=== PATIENT | female | born 1980 | race Caucasian/White ===

== ENCOUNTER 2016-11-09 09:14 | Inpatient (IN) | payer MEDICARE ==
[~2016-11-09] VITALS: Ht 170.2 cm; Wt 74.1 kg
[2016-11-09 09:27] VITALS: BP 130/83; PULSE 87; RESP 20; O2SAT 96
[2016-11-09] MEDS ORDERED: LORazepam 2 MG/ML VIAL IM ONE (10:00)
--- NOTE | 2016-11-09 10:04 | PD ---
HPI Chief Complaint: Psychiatric Symptoms Time Seen by Provider: 09:45 Travel History International Travel<30 days: No Contact w/Intl Traveler<30days: No Traveled to known affect area: No History of Present Illness HPI Patient is a 36-year-old female who presents to ER with police officers under rice act as she made suicidal statements today. Reports that she wants to because she has no life and is not afraid to if she was run over by a vehicle. FOR[facility]LY [facility] Past Medical History Diminished Hearing: No Kidney Stones: Yes ?: Unknown LMP: 10/12/16 Past Surgical History Other Surgery: Yes (right hand surgery, right knee surgery ) Social History Alcohol Use: No Tobacco Use: No Substance Use: No Allergies-Medications (Allergen,Severity, Reaction): Coded Allergies: Percocet (Verified Allergy, Mild, itching , 11/09/16) Review of Systems General / Constitutional: No: Fever Eyes: No: Visual changes HENT: No: Headaches Cardiovascular: No: Chest Pain or Discomfort Respiratory: No: Shortness of Breath Gastrointestinal: No: Abdominal Pain Genitourinary: No: Dysuria Musculoskeletal: No: Pain Skin: No Rash Neurologic: No: Weakness Psychiatric: Positive: Depression, Suicidal Ideations Endocrine: No: Polydipsia Hematologic/Lymphatic: No: Easy Bruising Physical Exam Narrative GENERAL: Mild distress SKIN: Focused skin assessment warm/dry. HEAD: Atraumatic. Normocephalic. EYES: Pupils equal and round. No scleral icterus. No injection or drainage. ENT: No nasal bleeding or discharge. Mucous membranes pink and moist. NECK: Trachea midline. No JVD. CARDIOVASCULAR: Regular rate and rhythm. No murmur appreciated. RESPIRATORY: No accessory muscle use. Clear to auscultation. Breath sounds equal bilaterally. GASTROINTESTINAL: Abdomen soft, non-tender, nondistended. Hepatic and splenic margins not palpable. MUSCULOSKELETAL: No obvious deformities. No clubbing. No cyanosis. No edema. NEUROLOGICAL: Awake and alert. No obvious cranial nerve deficits. Motor grossly within normal limits. Normal speech. PSYCHIATRIC: Patient with suicidal ideation, patient aggressive and combative Data Data Last Documented VS Vital Signs Date Time Temp Pulse Resp B/P Pulse Ox O2 Delivery O2 Flow Rate FiO2 11/09/16 09:27 87 20 130/83 96 Orders Complete Blood Count With Diff (11/09/16 09:51) Comprehensive Metabolic Panel (11/09/16 09:51) Psych Screen (11/09/16 09:51) Drug Screen, Random Urine (11/09/16 09:51) Alcohol (Ethanol) (11/09/16 09:51) Salicylates (Aspirin) (11/09/16 09:51) Tylenol (Acetaminophen) (11/09/16 09:51) Ed Urine Pregnancytest Poc (11/09/16 09:51) Lorazepam Inj (Ativan Inj) (11/09/16 10:00) Haloperidol Inj (Haldol Inj) (11/09/16 10:15) Restraints Violent (11/09/16 10:02) Labs Laboratory Tests Test 11/09/16 10:00 White Blood Count 6.5 TH/MM3 Red Blood Count 4.27 MIL/MM3 Hemoglobin 12.6 GM/DL Hematocrit 37.4 % Mean Corpuscular Volume 87.5 FL Mean Corpuscular Hemoglobin 29.6 PG Mean Corpuscular Hemoglobin 33.8 % Concent Red Cell Distribution Width 13.8 % Platelet Count 302 TH/MM3 Mean Platelet Volume 7.5 FL Neutrophils (%) (Auto) 64.0 % Lymphocytes (%) (Auto) 27.2 % Monocytes (%) (Auto) 6.7 % Eosinophils (%) (Auto) 1.3 % Basophils (%) (Auto) 0.8 % Neutrophils # (Auto) 4.2 TH/MM3 Lymphocytes # (Auto) 1.8 TH/MM3 Monocytes # (Auto) 0.4 TH/MM3 Eosinophils # (Auto) 0.1 TH/MM3 Basophils # (Auto) 0.1 TH/MM3 CBC Comment DIFF FINAL Differential Comment Sodium Level 139 MEQ/L Potassium Level 3.7 MEQ/L Chloride Level 107 MEQ/L Carbon Dioxide Level 27.4 MEQ/L Anion Gap 5 MEQ/L Blood Urea Nitrogen 14 MG/DL Creatinine 0.68 MG/DL Estimat Glomerular Filtration 97 ML/MIN Rate Random Glucose 90 MG/DL Calcium Level 8.7 MG/DL Total Bilirubin 0.4 MG/DL Aspartate Amino Transf 18 U/L (AST/SGOT) Alanine Aminotransferase 21 U/L (ALT/SGPT) Alkaline Phosphatase 97 U/L Total Protein 8.1 GM/DL Albumin 4.2 GM/DL Salicylates Level 2.9 MG/DL Acetaminophen Level LESS THAN 2.0 MCG/ML Ethyl Alcohol Level LESS THAN 3 MG/DL MDM Medical Decision Making Medical Screen Exam Complete: Yes Emergency Medical Condition: Yes Interpretation(s) Vital Signs Date Time Temp Pulse Resp B/P Pulse Ox O2 Delivery O2 Flow Rate FiO2 11/09/16 09:27 87 20 130/83 96 Differential Diagnosis Suicidal ideations, depression, bipolar disorder, chiquita Narrative Course Patient is a 36-year-old female who presents to ER with police officers under rice act as she made suicidal statements today. Reports that she wants to because she has no life and is not afraid to if she was run over by a vehicle. Patient currently belligerent, combative, aggressive to staff at this time, patient requires chemical as well as restraints for her safety as well as for safety of staff. Laboratory Tests Test 11/09/16 10:00 White Blood Count 6.5 TH/MM3 (4.0-11.0) Red Blood Count 4.27 MIL/MM3 (4.00-5.30) Hemoglobin 12.6 GM/DL (11.6-15.3) Hematocrit 37.4 % (35.0-46.0) Mean Corpuscular Volume 87.5 FL (80.0-100.0) Mean Corpuscular Hemoglobin 29.6 PG (27.0-34.0) Mean Corpuscular Hemoglobin 33.8 % Concent (32.0-36.0) Red Cell Distribution Width 13.8 % (11.6-17.2) Platelet Count 302 TH/MM3 (150-450) Mean Platelet Volume 7.5 FL (7.0-11.0) Neutrophils (%) (Auto) 64.0 % (16.0-70.0) Lymphocytes (%) (Auto) 27.2 % (9.0-44.0) Monocytes (%) (Auto) 6.7 % (0.0-8.0) Eosinophils (%) (Auto) 1.3 % (0.0-4.0) Basophils (%) (Auto) 0.8 % (0.0-2.0) Neutrophils # (Auto) 4.2 TH/MM3 (1.8-7.7) Lymphocytes # (Auto) 1.8 TH/MM3 (1.0-4.8) Monocytes # (Auto) 0.4 TH/MM3 (0-0.9) Eosinophils # (Auto) 0.1 TH/MM3 (0-0.4) Basophils # (Auto) 0.1 TH/MM3 (0-0.2) CBC Comment DIFF FINAL Differential Comment Sodium Level 139 MEQ/L (136-145) Potassium Level 3.7 MEQ/L (3.5-5.1) Chloride Level 107 MEQ/L (98-107) Carbon Dioxide Level 27.4 MEQ/L (21.0-32.0) Anion Gap 5 MEQ/L (5-15) Blood Urea Nitrogen 14 MG/DL (7-18) Creatinine 0.68 MG/DL (0.50-1.00) Estimat Glomerular Filtration 97 ML/MIN (>89) Rate Random Glucose 90 MG/DL (74-106) Calcium Level 8.7 MG/DL (8.5-10.1) Total Bilirubin 0.4 MG/DL (0.2-1.0) Aspartate Amino Transf 18 U/L (15-37) (AST/SGOT) Alanine Aminotransferase 21 U/L (10-53) (ALT/SGPT) Alkaline Phosphatase 97 U/L (45-117) Total Protein 8.1 GM/DL (6.4-8.2) Albumin 4.2 GM/DL (3.4-5.0) Salicylates Level 2.9 MG/DL (2.8-20.0) Acetaminophen Level LESS THAN 2.0 MCG/ML (10.0-30.0) Ethyl Alcohol Level LESS THAN 3 MG/DL (0-5) Patient was able to be consoled without chemical and mechanical restraints - will transfer patient to [facility] for psychiatric evaluation. Patient with 1:1 at bedside, restraints as well as chemical restraints were not administered Critical Care Narrative Aggregate critical care time was 30 minutes. Time to perform other separately billable procedures was not included in the critical care time. My time did not include minutes spent treating any other patients simultaneously or on activities that did not directly contribute to the patient's treatment. The services I provided to this patient were to treat and/or prevent clinically significant deterioration that could result in: , decompensation, deterioration I provided critical care services requiring my management, as noted below: Chart data review, documentation time, medication orders and management, vital sign assessments/reviewing monitor data, ordering and reviewing lab tests, ordering and interpreting/reviewing x-rays and diagnostic studies, care of the patient and discussion of the patient with the admitting physicians. Renata Anderson DO Nov 09, 2016 10:04
[2016-11-09 10:11] LABS: AUTOMATED NEUTROPHIL # 4.2 TH/MM3 (1.8-7.7); BASOPHIL # 0.1 TH/MM3 (0-0.2); BASOPHIL % 0.8 % (0.0-2.0); EOSINOPHIL # 0.1 TH/MM3 (0-0.4); EOSINOPHIL % 1.3 % (0.0-4.0); HEMATOCRIT 37.4 % (35.0-46.0); HEMO FLAGS DIFF FINAL; LYMPH % 27.2 % (9.0-44.0); LYMPHOCYTE # 1.8 TH/MM3 (1.0-4.8); MEAN CELL VOLUME 87.5 FL (80.0-100.0); MEAN CORPUSCULAR HEMOGLOBIN 29.6 PG (27.0-34.0); MEAN CORPUSCULAR HGB CONC 33.8 % (32.0-36.0); MONO % 6.7 % (0.0-8.0); PLATELET COUNT 302 TH/MM3 (150-450); RED BLOOD COUNT 4.27 MIL/MM3 (4.00-5.30); RED CELL DISTRIBUTION WIDTH 13.8 % (11.6-17.2); WHITE BLOOD COUNT 6.5 TH/MM3 (4.0-11.0)
[2016-11-09] MEDS ORDERED: HALOPERIDOL LACTATE 5 MG/ML AMP IM ONE (10:15)
[2016-11-09 10:48] LABS: ANION GAP 5 MEQ/L (5-15)
[2016-11-09 10:59] LABS: ALKALINE PHOSPHATASE 97 U/L (45-117); ALT (GPT) 21 U/L (10-53); AST (GOT) 18 U/L (15-37); BICARBONATE 27.4 MEQ/L (21.0-32.0); BLOOD UREA NITROGEN 14 MG/DL (7-18); CHLORIDE 107 MEQ/L (98-107); GLOMERULAR FILTRATION RATE 97 ML/MIN (>89); POTASSIUM 3.7 MEQ/L (3.5-5.1); SODIUM (NA) 139 MEQ/L (136-145); TOTAL BILIRUBIN ADULT 0.4 MG/DL (0.2-1.0)
[2016-11-09 11:00] LABS: ACETAMINOPHEN LESS THAN 2.0 MCG/ML (10.0-30.0)
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
[2016-11-09] MEDS ORDERED: ALUMINUM/MAGNESIUM/SIMETH 30 ML CUP PO PRN (13:15)
[2016-11-09] MEDS ORDERED: traZODone HCL 50 MG TAB PO PRN (13:15)
[2016-11-09] MEDS ORDERED: LORazepam 2 MG/ML VIAL IM PRN ×2 (13:15)
[2016-11-09] MEDS ORDERED: LORazepam 0.5 MG TAB PO PRN (13:15)
[2016-11-09] MEDS ORDERED: diphenhydrAMINE HCL 50 MG/ML VIAL IM PRN (13:15)
[2016-11-09] MEDS ORDERED: diphenhydrAMINE HCL 50 MG CAP PO PRN (13:15)
[2016-11-09] MEDS ORDERED: LORazepam 1 MG TAB PO PRN (13:15)
[2016-11-09] MEDS ORDERED: MAGNESIUM HYDROXIDE SUSP 30 ML CUP PO PRN (13:15)
[2016-11-09 15:01] VITALS: BP 116/81; PULSE 87; RESP 18; O2SAT 98
[2016-11-09 18:21] VITALS: BP 126/72; PULSE 72; RESP 22; TEMP 97.9; O2SAT 99
[2016-11-10 06:00] VITALS: BP 114/73; PULSE 70; RESP 18; TEMP 97.7; O2SAT 99
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
[2016-11-10] MEDS ORDERED: OLANZapine IM 10 MG VIAL IM PRN (14:15)
[2016-11-10 18:06] VITALS: BP 115/58; PULSE 82; RESP 16; TEMP 98.3; O2SAT 98
[2016-11-11] MEDS: ACETAMINOPHEN 325 MG TAB PO PRN ×2 (02:16→09:23)
[2016-11-11 06:00] VITALS: BP 121/78; PULSE 64; RESP 18; TEMP 97.7; O2SAT 98
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
[2016-11-11 18:06] VITALS: BP 114/63; PULSE 88; RESP 18; TEMP 98; O2SAT 98
[2016-11-11] MEDS: OLANZapine ODT 10 MG TAB PO SCH (21:20)
[2016-11-12 05:45] VITALS: BP 131/61; PULSE 81; RESP 17; TEMP 98.7; O2SAT 98
--- NOTE | 2016-11-12 11:58 | HHI.PYPN ---
Subjective Remarks Patient seen and examined with nurse. Chart reviewed. Case discussed with nursing staff. On my examination this morning, following a scheduled dose of Zyprexa yesterday evening, the patient seems considerably more logical and linear in her thought process. Significantly less loosening of associations. Affect considerably less labile and mood generally more stable. Now says of her presenting episode "I probably could've dealt with the situation better." She does complain of some mild grogginess and dizziness related with the Zyprexa but otherwise denies side effects. Agreeable to having lab work done today. No SI or HI. No physical complaints otherwise. Review of Systems Except as stated in HPI: all other systems reviewed are Neg Objective Alert: Yes [place]: Person, Place, Date Mood: Calm Affect: Blunted Memory Intact: Comment (fair) Hallucinations: Other (No AVH) Delusions: No Delusion Type: Other (No delusions) Suicidal: Ideation (No SI) Homicidal: Ideation (No HI) Insight/Judgment Perhaps improving Remarks Thought process considerably more linear today. Grooming and hygiene fair. Speech within normal limits for rate, tone and volume. Labs Labs reviewed. A urine drug screen was obtained and this is positive for cannabinoids. Vitals/IOs Vital Signs Date Time Temp Pulse Resp B/P Pulse Ox O2 Delivery O2 Flow Rate FiO2 11/12/16 05:45 98.7 81 17 131/61 98 11/09/16 15:01 Room Air Assessment & Plan Problem List: (1) Corin Assessment & Plan: Improving. Rule out drug-induced mood disorder, rule out bipolar disorder. ICD Code: F30.9 (2) Use of cannabis ICD Code: F12.90 Assessment & Plan Patient seems much improved this morning. Continue Zyprexa as ordered. Check TSH, B12, vitamin D. Check orthostatics. Fall precautions. Transfer to lower acuity unit. Continue other medications and care as ordered. Justification for Cont. Inpt. Monitoring for impairments in safety. Discharge Planning Possible discharge tomorrow, Wednesday, if the patient continues to do well. Request HC Surrog/Guard Advoc?: Yes Edi Catnu MD Nov 12, 2016 11:58
[2016-11-12 13:40] LABS: AMPHETAMINE, URINE NEG (NEG); BARBITURATES, URINE NEG (NEG); COCAINE, URINE NEG (NEG)
[2016-11-12 16:00] VITALS: BP_SYST 106; BP_SYST 113; BP_DIAS 61; BP_DIAS 66; BP_DIAS 76; PULSE 66; PULSE 78; PULSE 80
[2016-11-12 18:00] VITALS: BP 106/61; PULSE 78; RESP 18; TEMP 98.9; O2SAT 96
[2016-11-12] MEDS: OLANZapine ODT 10 MG TAB PO SCH (21:50)
[2016-11-13] MEDS ORDERED: ZYPR10TA PO (11:09)
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
== END 2016-11-13 14:20 | disposition home or self-care (01) | DRG 885 ==
LOC: NEPE 09:14 → NEDA 13:04 → H270 18:00 → H260 11-12 12:15
PROVIDERS: ADMIT Psychiatry & Neurology Psychiatry; ATTEND Psychiatry & Neurology Psychiatry
DX: F31.2 Bipolar disorder, current episode manic severe with psychotic features (principal); R45.851 Suicidal ideations; Z78.1 Physical restraint status; F23 Brief psychotic disorder; F12.90 Cannabis use, unspecified, uncomplicated
CPT/HCPCS: 80053; 80307; 82306; 82607; 84443; 84703; 85025; Q0163

== ENCOUNTER 2016-11-20 19:22 | Emergency (ER) | payer MEDICARE, OTHER ==
[~2016-11-20] VITALS: Ht 165.1 cm; Wt 60.0 kg
[~2016-11-20 19:22] MED LIST: ZYPR10TA PO
[2016-11-20 20:30] VITALS: BP 121/66; PULSE 64; RESP 15; TEMP 98; O2SAT 98
--- NOTE | 2016-11-20 20:41 | PD ---
HPI Chief Complaint: psychiatric clearance Time Seen by Provider: 20:33 Travel History International Travel<30 days: No Contact w/Intl Traveler<30days: No Traveled to known affect area: No History of Present Illness HPI 36-year-old female was brought to the emergency room by the police as a court order for ex parte today. It is little unclear as to what exactly happened. Patient was arrested last night and was brought to the court this afternoon when she must have said something to somebody which made her get the ex parte. Patient does have psych history. [facility] Past Medical History Narrative Medical List of his past medical, surgical, social and family history is reviewed from the nursing note. Diminished Hearing: No Kidney Stones: Yes Past Surgical History Other Surgery: Yes (right hand surgery, right knee surgery ) Social History Alcohol Use: No Tobacco Use: No Substance Use: Yes (MARIJUANA DAILY) Allergies-Medications (Allergen,Severity, Reaction): Coded Allergies: Percocet (Verified Allergy, Mild, itching , 11/20/16) Comments List of his allergies reviewed from the nursing note. Reported Meds & Prescriptions Reported Meds & Active Scripts Active Zyprexa (Olanzapine) 10 Mg Tab 10 Mg PO HS Zyprexa (Olanzapine) 10 Mg Tab 10 Mg PO HS 15 Days Narrative Medication List of his home medications reviewed from the nursing note. Review of Systems Except as stated in HPI: all other systems reviewed are Neg Physical Exam Narrative GENERAL: Awake, alert, anxious SKIN: Focused skin assessment warm/dry. HEAD: Atraumatic. Normocephalic. EYES: Pupils equal and round. No scleral icterus. No injection or drainage. ENT: No nasal bleeding or discharge. Mucous membranes pink and moist. NECK: Trachea midline. No JVD. CARDIOVASCULAR: Regular rate and rhythm. No murmur appreciated. RESPIRATORY: No accessory muscle use. Clear to auscultation. Breath sounds equal bilaterally. GASTROINTESTINAL: Abdomen soft, non-tender, nondistended. Hepatic and splenic margins not palpable. MUSCULOSKELETAL: No obvious deformities. No clubbing. No cyanosis. No edema. NEUROLOGICAL: Awake and alert. No obvious cranial nerve deficits. Motor grossly within normal limits. Normal speech. PSYCHIATRIC: Appropriate mood and affect; insight and judgment normal. Data Data Last Documented VS Vital Signs Date Time Temp Pulse Resp B/P Pulse Ox O2 Delivery O2 Flow Rate FiO2 11/21/16 11:39 79 18 115/77 98 11/21/16 07:39 Room Air 11/20/16 20:30 98.0 Orders Complete Blood Count With Diff (11/20/16 20:53) Comprehensive Metabolic Panel (11/20/16 20:53) Beta Hcg (Quant/Titer) (11/20/16 20:53) Psych Screen (11/20/16 20:53) Drug Screen, Random Urine (11/20/16 20:53) Diet Regular Basic (11/21/16 Breakfast) Labs Laboratory Tests Test 11/20/16 11/21/16 22:10 09:44 White Blood Count 7.8 TH/MM3 Red Blood Count 4.04 MIL/MM3 Hemoglobin 11.7 GM/DL Hematocrit 36.2 % Mean Corpuscular Volume 89.5 FL Mean Corpuscular Hemoglobin 28.9 PG Mean Corpuscular Hemoglobin 32.3 % Concent Red Cell Distribution Width 13.5 % Platelet Count 287 TH/MM3 Mean Platelet Volume 7.9 FL Neutrophils (%) (Auto) 60.1 % Lymphocytes (%) (Auto) 29.5 % Monocytes (%) (Auto) 8.0 % Eosinophils (%) (Auto) 1.6 % Basophils (%) (Auto) 0.8 % Neutrophils # (Auto) 4.7 TH/MM3 Lymphocytes # (Auto) 2.3 TH/MM3 Monocytes # (Auto) 0.6 TH/MM3 Eosinophils # (Auto) 0.1 TH/MM3 Basophils # (Auto) 0.1 TH/MM3 CBC Comment DIFF FINAL Differential Comment Sodium Level 139 MEQ/L Potassium Level 3.5 MEQ/L Chloride Level 108 MEQ/L Carbon Dioxide Level 23.3 MEQ/L Anion Gap 8 MEQ/L Blood Urea Nitrogen 7 MG/DL Creatinine 0.62 MG/DL Estimat Glomerular Filtration 108 ML/MIN Rate Random Glucose 80 MG/DL Calcium Level 9.0 MG/DL Total Bilirubin 0.6 MG/DL Aspartate Amino Transf 27 U/L (AST/SGOT) Alanine Aminotransferase 26 U/L (ALT/SGPT) Alkaline Phosphatase 97 U/L Total Protein 7.2 GM/DL Albumin 3.7 GM/DL Human Chorionic Gonadotropin, LESS THAN 1 Quant MIU/ML Urine Opiates Screen NEG Urine Barbiturates Screen NEG Urine Amphetamines Screen NEG Urine Benzodiazepines Screen NEG Urine Cocaine Screen NEG Urine Cannabinoids Screen POS MDM Medical Decision Making Medical Screen Exam Complete: Yes Emergency Medical Condition: Yes Medical Record Reviewed: Yes Differential Diagnosis Psychosis, anger outburst Narrative Course 10:30 PM awaiting for blood test to come back for medical clearance upon which she will require psych screen. 11:17 PM patient is medically cleared for psych screen. Procedures EKG Prior to Arrival: No Scripts Olanzapine (Zyprexa)10 Mg Tab10 Mg PO HS #30 TAB Ref 0 Prov:Jeremiah Christian MD 11/21/16 Wayne Amaya MD Nov 20, 2016 20:41
[2016-11-20 22:37] LABS: AUTOMATED NEUTROPHIL # 4.7 TH/MM3 (1.8-7.7); BASOPHIL # 0.1 TH/MM3 (0-0.2); BASOPHIL % 0.8 % (0.0-2.0); EOSINOPHIL # 0.1 TH/MM3 (0-0.4); EOSINOPHIL % 1.6 % (0.0-4.0); HEMATOCRIT 36.2 % (35.0-46.0); HEMO FLAGS DIFF FINAL; LYMPH % 29.5 % (9.0-44.0); LYMPHOCYTE # 2.3 TH/MM3 (1.0-4.8); MEAN CELL VOLUME 89.5 FL (80.0-100.0); MEAN CORPUSCULAR HEMOGLOBIN 28.9 PG (27.0-34.0); MEAN CORPUSCULAR HGB CONC 32.3 % (32.0-36.0); NEUT % 60.1 % (16.0-70.0); PLATELET COUNT 287 TH/MM3 (150-450); RED BLOOD COUNT 4.04 MIL/MM3 (4.00-5.30); RED CELL DISTRIBUTION WIDTH 13.5 % (11.6-17.2); WHITE BLOOD COUNT 7.8 TH/MM3 (4.0-11.0)
[2016-11-20 22:57] LABS: ANION GAP 8 MEQ/L (5-15); AST (GOT) 27 U/L (15-37); BICARBONATE 23.3 MEQ/L (21.0-32.0); BLOOD UREA NITROGEN 7 MG/DL (7-18); CHLORIDE 108 MEQ/L (98-107); GLOMERULAR FILTRATION RATE 108 ML/MIN (>89); POTASSIUM 3.5 MEQ/L (3.5-5.1); SODIUM (NA) 139 MEQ/L (136-145)
[2016-11-20 23:02] LABS: ALKALINE PHOSPHATASE 97 U/L (45-117); ALT (GPT) 26 U/L (10-53); BETA HCG QUANT LESS THAN 1 MIU/ML (0-5); TOTAL BILIRUBIN ADULT 0.6 MG/DL (0.2-1.0)
[2016-11-21 01:29] VITALS: BP 114/67; PULSE 78; RESP 16; O2SAT 97
[2016-11-21 04:00] VITALS: BP 121/69; PULSE 74; RESP 16; O2SAT 98
[2016-11-21 07:39] VITALS: BP 127/88; PULSE 83; RESP 18; O2SAT 98
[2016-11-21 10:12] LABS: AMPHETAMINE, URINE NEG (NEG); BARBITURATES, URINE NEG (NEG); COCAINE, URINE NEG (NEG)
[2016-11-21] MEDS ORDERED: ZYPR10TA PO (11:25)
[2016-11-21 11:39] VITALS: BP 115/77
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
== END 2016-11-21 12:20 ==
LOC: NEPD 19:22
DX: F31.9 Bipolar disorder, unspecified (principal); F12.90 Cannabis use, unspecified, uncomplicated
CPT/HCPCS: 80053; 80307; 84702; 85025; 99283

== ENCOUNTER 2016-12-08 12:12 | Inpatient (IN) | payer MEDICARE, OTHER ==
[~2016-12-08] VITALS: Ht 162.6 cm; Wt 74.8 kg
[2016-12-08 12:34] VITALS: BP 133/60; PULSE 86; RESP 20; TEMP 97.9; O2SAT 98
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
[2016-12-08] MEDS ORDERED: HALOPERIDOL LACTATE 5 MG/ML AMP ONE (14:15)
[2016-12-08] MEDS ORDERED: HALOPERIDOL LACTATE 5 MG/ML AMP IM ONE (14:15)
--- NOTE | 2016-12-08 14:45 | PD ---
Physical Exam Narrative I, Dr. Novoa, have reviewed the advance practice practitioner's documentation and am in agreement, met with the patient face to face, made the diagnosis, and the medical decision making was done by me. *My assessment and Findings: Bipolar disorder vs. psychosis 36yo F brought under rice act for suicidal ideation. Pt is screaming about food so food was given to her. However, pt remained verbally abusive to staff and is a threat to staff so haldol 5mg IM given. Pt was here 2 weeks ago for the same complaint. Pt needs to be evaluated by psych. Data Data Last Documented VS Vital Signs Date Time Temp Pulse Resp B/P Pulse Ox O2 Delivery O2 Flow Rate FiO2 12/08/16 12:34 97.9 86 20 133/60 98 Orders Haloperidol Inj (Haldol Inj) (12/08/16 14:15) Haloperidol Inj (Haldol Inj) (12/08/16 14:15) MDM Supervised Visit with FABIOLA: Yes Diagnosis Primary Impression: Medical clearance for psychiatric admission Condition: Stable Kacy Novoa DO Dec 08, 2016 14:45
[2016-12-08 17:49] VITALS: BP 130/63; PULSE 78; RESP 18; O2SAT 99
[2016-12-08] MEDS ORDERED: diphenhydrAMINE HCL 50 MG CAP PO PRN (18:30)
[2016-12-08] MEDS ORDERED: ALUMINUM/MAGNESIUM/SIMETH 30 ML CUP PO PRN (18:30)
[2016-12-08] MEDS ORDERED: MAGNESIUM HYDROXIDE SUSP 30 ML CUP PO PRN (18:30)
[2016-12-08] MEDS ORDERED: LORazepam 2 MG/ML VIAL IM PRN (18:30)
[2016-12-08] MEDS ORDERED: ACETAMINOPHEN 325 MG TAB PO PRN (18:30)
[2016-12-08] MEDS ORDERED: BENZTROPINE MESYLATE 1 MG TAB PO PRN (18:30)
[2016-12-08] MEDS ORDERED: BENZTROPINE MESYLATE 2 MG/2 ML VIAL IM PRN (18:30)
[2016-12-08] MEDS: OLANZapine 10 MG TAB PO SCH (21:00)
[2016-12-08 22:12] VITALS: BP 100/52; PULSE 52; RESP 18; O2SAT 96
[2016-12-08 22:15] VITALS: BP 107/65; PULSE 67; RESP 18; TEMP 97.4; O2SAT 100
[2016-12-09 05:57] VITALS: BP 112/65; PULSE 58; RESP 18; TEMP 97.3; O2SAT 97
[2016-12-09] MEDS: REMOVE OLD PATCH T-DERMAL SCH (09:00)
[2016-12-09] MEDS: NICOTINE 21 MG/24 HR PATCH T-DERMAL SCH (09:00)
[2016-12-09] MEDS ORDERED: MAGNESIUM HYDROXIDE SUSP 30 ML CUP PO PRN (09:15)
[2016-12-09] MEDS ORDERED: ALUMINUM/MAGNESIUM/SIMETH 30 ML CUP PO PRN (09:15)
[2016-12-09] MEDS ORDERED: diphenhydrAMINE HCL 50 MG CAP PO PRN (09:15)
[2016-12-09] MEDS ORDERED: hydrOXYzine HCL 50 MG TAB PO PRN (09:15)
[2016-12-09] MEDS ORDERED: ACETAMINOPHEN 325 MG TAB PO PRN (09:15)
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
[2016-12-09 18:21] VITALS: BP 148/82; PULSE 102; RESP 20; TEMP 98.6; O2SAT 97
[2016-12-09] MEDS: LORazepam 1 MG TAB PO PRN (20:20)
[2016-12-09] MEDS: OLANZapine 10 MG TAB PO SCH (20:20)
[2016-12-10 06:06] VITALS: BP 101/55; PULSE 66; RESP 16; TEMP 98.4; O2SAT 97
[2016-12-10] MEDS: REMOVE OLD PATCH T-DERMAL SCH (08:25)
[2016-12-10] MEDS: NICOTINE 21 MG/24 HR PATCH T-DERMAL SCH (08:25)
[2016-12-10 08:31] LABS: AUTOMATED NEUTROPHIL # 3.1 TH/MM3 (1.8-7.7); BASOPHIL # 0.1 TH/MM3 (0-0.2); EOSINOPHIL # 0.1 TH/MM3 (0-0.4); EOSINOPHIL % 1.9 % (0.0-4.0); HEMATOCRIT 35.6 % (35.0-46.0); HEMO FLAGS DIFF FINAL; LYMPH % 34.3 % (9.0-44.0); LYMPHOCYTE # 1.9 TH/MM3 (1.0-4.8); MEAN CELL VOLUME 88.7 FL (80.0-100.0); MEAN CORPUSCULAR HGB CONC 33.8 % (32.0-36.0); MONO % 6.4 % (0.0-8.0); NEUT % 56.4 % (16.0-70.0); PLATELET COUNT 237 TH/MM3 (150-450); RED BLOOD COUNT 4.02 MIL/MM3 (4.00-5.30); RED CELL DISTRIBUTION WIDTH 13.4 % (11.6-17.2); WHITE BLOOD COUNT 5.6 TH/MM3 (4.0-11.0)
[2016-12-10 08:33] LABS: ALT (GPT) 20 U/L (10-53); ANION GAP 6 MEQ/L (5-15); AST (GOT) 20 U/L (15-37); BICARBONATE 25.6 MEQ/L (21.0-32.0); BLOOD UREA NITROGEN 6 MG/DL (7-18); CHLORIDE 108 MEQ/L (98-107); GLOMERULAR FILTRATION RATE 94 ML/MIN (>89); POTASSIUM 3.8 MEQ/L (3.5-5.1); SODIUM (NA) 140 MEQ/L (136-145)
[2016-12-10 08:35] LABS: ALKALINE PHOSPHATASE 94 U/L (45-117); HDL CHOLESTEROL 51.5 MG/DL (40.0-60.0); LDL CHOLESTEROL 68 MG/DL (0-99); TOTAL BILIRUBIN ADULT 0.6 MG/DL (0.2-1.0)
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
--- NOTE | 2016-12-10 13:39 | HHI.PYPN ---
Subjective Remarks Patient seen in her room with nurse Alec. Chart reviewed. Patient compliant medication. Patients paranoia anger intrusiveness and entitlement has softened somewhat with me. She is calmer more pleasant more appropriate with her responses. She states she slept better. She feels comfortable with the Zyprexa bedtime is willing to continue with that as an outpatient. She denies suicidality homicidality she is vague about any auditory hallucinations at this time. For now continue treatment Review of Systems Except as stated in HPI: all other systems reviewed are Neg Objective Alert: Yes [place]: Person, Place Mood: Agitated (markedly decreased), Calm Affect: Other (improved range intensity) Memory Intact: Comment (a) Hallucinations: Auditory (is vague about this) Delusions: Yes Delusion Type: Paranoid (markedly decreased) Suicidal: Ideation (vaguely denies) Homicidal: Ideation (deny) Insight/Judgment Poor Labs Test 12/10/16 07:51 White Blood Count 5.6 TH/MM3 Red Blood Count 4.02 MIL/MM3 Hemoglobin 12.0 GM/DL Hematocrit 35.6 % Mean Corpuscular Volume 88.7 FL Mean Corpuscular Hemoglobin 30.0 PG Mean Corpuscular Hemoglobin 33.8 % Concent Red Cell Distribution Width 13.4 % Platelet Count 237 TH/MM3 Mean Platelet Volume 8.2 FL Neutrophils (%) (Auto) 56.4 % Lymphocytes (%) (Auto) 34.3 % Monocytes (%) (Auto) 6.4 % Eosinophils (%) (Auto) 1.9 % Basophils (%) (Auto) 1.0 % Neutrophils # (Auto) 3.1 TH/MM3 Lymphocytes # (Auto) 1.9 TH/MM3 Monocytes # (Auto) 0.4 TH/MM3 Eosinophils # (Auto) 0.1 TH/MM3 Basophils # (Auto) 0.1 TH/MM3 CBC Comment DIFF FINAL Differential Comment Sodium Level 140 MEQ/L Potassium Level 3.8 MEQ/L Chloride Level 108 MEQ/L Carbon Dioxide Level 25.6 MEQ/L Anion Gap 6 MEQ/L Blood Urea Nitrogen 6 MG/DL Creatinine 0.70 MG/DL Estimat Glomerular Filtration 94 ML/MIN Rate Random Glucose 83 MG/DL Calcium Level 8.4 MG/DL Total Bilirubin 0.6 MG/DL Aspartate Amino Transf 20 U/L (AST/SGOT) Alanine Aminotransferase 20 U/L (ALT/SGPT) Alkaline Phosphatase 94 U/L Total Protein 7.1 GM/DL Albumin 3.6 GM/DL Triglycerides Level 100 MG/DL Cholesterol Level 139 MG/DL LDL Cholesterol 68 MG/DL HDL Cholesterol 51.5 MG/DL Cholesterol/HDL Ratio 2.69 RATIO Beta HCG, Qualitative LESS THAN 1 MIU/ML Vitals/IOs Vital Signs Date Time Temp Pulse Resp B/P Pulse Ox O2 Delivery O2 Flow Rate FiO2 12/10/16 06:06 98.4 66 16 101/55 97 12/08/16 22:12 Room Air Assessment & Plan Problem List: (1) Bipolar disorder ICD Code: F31.9 (2) Marijuana abuse ICD Code: F12.10 Assessment & Plan Estimated LOS: days patient Colmer her psychosis persist but is softer in its intensity, she is compliant with medication Justification for Cont. Inpt. At the present time patient will decompensate if placed in the lower level of care Discharge Planning To be determined Request HC Surrog/Guard Advoc?: No Problem Qualifiers (1) Bipolar disorder: Qualified Code: F31.2 - Bipolar affective disorder, currently manic, severe, with psychotic features Jeremiah Christian MD Dec 10, 2016 13:39
[2016-12-10 16:07] VITALS: BP 107/55; PULSE 68; RESP 18; TEMP 98.4; O2SAT 99
[2016-12-10 18:14] LABS: HEMOGLOBIN A1a 1.1 %; HEMOGLOBIN A1b 0.8 %; HEMOGLOBIN Ao 86.3 %; HEMOGLOBIN F 0.8 %; HEMOGLOBIN LA1C 1.8 %; HEMOGLOBIN P3 3.4 %
[2016-12-10] MEDS: OLANZapine 10 MG TAB PO SCH (21:00)
[2016-12-10] MEDS: LORazepam 1 MG TAB PO PRN (21:29)
[2016-12-11 06:15] VITALS: BP 105/62; PULSE 60; RESP 16; TEMP 97.9; O2SAT 98
[2016-12-11] MEDS: REMOVE OLD PATCH T-DERMAL SCH (09:00)
[2016-12-11] MEDS: NICOTINE 21 MG/24 HR PATCH T-DERMAL SCH (09:00)
--- NOTE | 2016-12-11 13:56 | HHI.PYPN ---
Subjective Remarks Patient seen in day room nurse Estela, patient somewhat intense mildly intrusive and labile. Showing some little insight into her disease, feeling she is stable now for discharge to go with a boyfriend and live on her own. However she's only been compliant medication for 2 days. I feel she needs further time for stabilization and initial consistency in her improvement. Patient was not happy with this though she did accept it. We'll monitor over the weekend she remains consistent with good behavior compliance consider discharge on Wednesday Review of Systems Except as stated in HPI: all other systems reviewed are Neg Objective Alert: Yes [place]: Person, Place Mood: Agitated (markedly decreased), Calm Affect: Other (improved range intensity) Memory Intact: Comment (a) Hallucinations: Auditory (is vague about this) Delusions: Yes Delusion Type: Paranoid (markedly decreased) Suicidal: Ideation (vaguely denies) Homicidal: Ideation (deny) Insight/Judgment Poor Vitals/IOs Vital Signs Date Time Temp Pulse Resp B/P Pulse Ox O2 Delivery O2 Flow Rate FiO2 12/11/16 06:15 97.9 60 16 105/62 98 12/08/16 22:12 Room Air Assessment & Plan Problem List: (1) Bipolar disorder ICD Code: F31.9 (2) Marijuana abuse ICD Code: F12.10 Assessment & Plan Estimated LOS: days patient to show some improvement though I question part of the motivation no other be for getting earlier discharge refuse showing sigmoid significant mental health improvement. We'll continue to monitor over the weekend Justification for Cont. Inpt. At this time patient will decompensate the placed in a lower level of care Discharge Planning To be determined Request HC Surrog/Guard Advoc?: No Problem Qualifiers (1) Bipolar disorder: Qualified Code: F31.13 - Bipolar disorder, current episode manic without psychotic features, severe Jeremiah Christian MD Dec 11, 2016 13:56
[2016-12-11 17:53] VITALS: BP 115/75; PULSE 84; RESP 18; TEMP 98.2; O2SAT 99
[2016-12-11] MEDS ORDERED: LORazepam 0.5 MG TAB PO PRN (18:30)
[2016-12-11] MEDS ORDERED: LORazepam 2 MG/ML VIAL IM PRN (18:30)
[2016-12-11] MEDS: OLANZapine 10 MG TAB PO SCH (20:59)
[2016-12-12 06:08] VITALS: BP 113/64; PULSE 95; RESP 18; TEMP 97.7; O2SAT 97
[2016-12-12] MEDS: NICOTINE 21 MG/24 HR PATCH T-DERMAL SCH (08:38)
[2016-12-12] MEDS: REMOVE OLD PATCH T-DERMAL SCH (08:51)
--- NOTE | 2016-12-12 13:02 | HHI.PYPN ---
Subjective Remarks Pt seen and discussed with staff. She had to be redirected by staff for inappropriate behavior during recreation, but has been compliant with medications. No medication side effects. No SI/HI. She reports that mood is better and sleep is good. Objective Alert: Yes [place]: Person, Place Mood: Calm Affect: Other (mildly expansive) Memory Intact: Comment (a) Hallucinations: Other (none) Delusions: Yes Delusion Type: Paranoid (markedly decreased) Suicidal: Ideation (vaguely denies) Homicidal: Ideation (deny) Insight/Judgment poor Vitals/IOs Vital Signs Date Time Temp Pulse Resp B/P Pulse Ox O2 Delivery O2 Flow Rate FiO2 12/12/16 06:08 97.7 95 18 113/64 97 12/08/16 22:12 Room Air Assessment & Plan Problem List: (1) Bipolar disorder ICD Code: F31.9 (2) Marijuana abuse ICD Code: F12.10 Assessment & Plan Continue current tx plan. Estimated LOS: days Justification for Cont. Inpt. risk of decompensation Request HC Surrog/Guard Advoc?: No Problem Qualifiers (1) Bipolar disorder: Qualified Code: F31.13 - Bipolar disorder, current episode manic without psychotic features, severe Stacia Calhoun MD Dec 12, 2016 13:01
[2016-12-12 18:34] VITALS: BP 144/88; PULSE 81; RESP 16; TEMP 98.1; O2SAT 98
[2016-12-12] MEDS: OLANZapine 10 MG TAB PO SCH (23:03)
[2016-12-13 06:06] VITALS: BP 106/55; PULSE 57; RESP 17; TEMP 98.7; O2SAT 100
[2016-12-13] MEDS: REMOVE OLD PATCH T-DERMAL SCH (06:23)
[2016-12-13] MEDS: NICOTINE 21 MG/24 HR PATCH T-DERMAL SCH (08:45)
--- NOTE | 2016-12-13 14:54 | HHI.PYPN ---
Subjective Remarks Pt seen and discussed with staff. She has been intrusive and entitled on unit with mildly pressured speech. She is compliant with medications and denies side effects. 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 No SI/HI Objective Alert: Yes [place]: Person, Place, Date Mood: Anxious Affect: Other (mildly expansive) Memory Intact: Comment (a) Hallucinations: Other (none) Delusions: Yes Delusion Type: Grandiose Suicidal: Ideation (vaguely denies) Homicidal: Ideation (deny) Insight/Judgment poor Vitals/IOs Vital Signs Date Time Temp Pulse Resp B/P Pulse Ox O2 Delivery O2 Flow Rate FiO2 12/13/16 06:06 98.7 57 17 106/55 100 Assessment & Plan Problem List: (1) Bipolar disorder ICD Code: F31.9 (2) Marijuana abuse ICD Code: F12.10 Assessment & Plan Continue current tx plan Estimated LOS: days Justification for Cont. Inpt. impairments in social functioning and risk of decompensation Request HC Surrog/Guard Advoc?: No Problem Qualifiers (1) Bipolar disorder: Qualified Code: F31.13 - Bipolar disorder, current episode manic without psychotic features, severe Stacia Calhoun MD Dec 13, 2016 14:54
[2016-12-13 16:45] VITALS: BP 98/60; PULSE 75; RESP 18; TEMP 97.6; O2SAT 100
[2016-12-13] MEDS: OLANZapine 10 MG TAB PO SCH (20:36)
[2016-12-14 06:18] VITALS: BP 106/62; PULSE 65; RESP 16; TEMP 97.8; O2SAT 98
--- NOTE | 2016-12-14 12:44 | PD.TTN ---
Present for Treatment Team Treatment Team Staff: Provider (Dr. Christian), Psych Therapist (Laurie), Occupational Therapist (Urmila) Patient Problems 1. Discharge planning 2. Medication compliance 3. Knowledge deficit 4. Lack of coping skills Progress Toward Goals Provider Input: Patient has been compliant with medications and cooperative with care. Psych Therapist Input: Patient is cooperative with treatment and has had no behavioral issues on the unit. Patient is observed to be socializing appropriately on the unit with other peers and does tend to have some intrusive tendencies. Occupational Therapist Input: Patient is in attendance to most groups. Needs some redirection. Laurie Fisher [facility] Dec 14, 2016 12:44
[2016-12-14] MEDS ORDERED: OLAN10TA PO (13:29)
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
== END 2016-12-14 14:05 | disposition home or self-care (01) | DRG 885 ==
LOC: NEPD 12:12 → NEDA 18:23 → H270 22:14 → H260 12-12 12:56
PROVIDERS: ADMIT Psychiatry & Neurology Psychiatry; ATTEND Psychiatry & Neurology Psychiatry
DX: F31.10 Bipolar disorder, current episode manic without psychotic features, unspecified (principal); R45.851 Suicidal ideations; F12.10 Cannabis abuse, uncomplicated
CPT/HCPCS: 80053; 80061; 83036; 84703; 85025; 96372; J1630

== ENCOUNTER 2017-02-08 14:01 | Emergency (ER) | payer MEDICARE, OTHER ==
[~2017-02-08] VITALS: Ht 170.2 cm; Wt 77.0 kg
[~2017-02-08 14:01] MED LIST changes: +OLAN10TA PO
[2017-02-08 14:04] VITALS: BP 143/84; PULSE 101; RESP 20; TEMP 98.2; O2SAT 98
--- NOTE | 2017-02-08 14:11 | PD ---
Physical Exam Date Seen by Provider: Feb 08, 2017 Time Seen by Provider: 14:09 Narrative 36 yo female here for med change. Taking Zyprexa for Bipolar disorder. Giving her a lot of panick attacks. Wants to see if she can be off of it. No other medical issues. has not seen her doctor. No suicidal or homicidal ideations. Vitals stable at triage. Awaiting bed placement. Data Data Last Documented VS Vital Signs Date Time Temp Pulse Resp B/P (MAP) Pulse Ox O2 Delivery O2 Flow Rate FiO2 02/08/17 14:04 98.2 101 20 143/84 (103) 98 MDM Medical Record Reviewed: Yes Supervised Visit with FABIOLA: No Den Stuart Feb 08, 2017 14:11
--- NOTE | 2017-02-08 16:09 | PD ---
HPI . wants a medication change Chief Complaint: Medication Refill Request Time Seen by Provider: 16:08 Travel History International Travel<30 days: No Contact w/Intl Traveler<30days: No Traveled to known affect area: No History of Present Illness HPI 36 yr old female here wanting to change her medication. She says she tried to contact [facility], but was told she would have to wait until tomorrow for an appointment. She decided to come here to see if she could get this taken care of today because she wants to make sure she can watch Wednesday Night football. She says she was put on Zyprexa and has some side effects. She denies any suicidal or homicidal ideation. She says she was told that she needed to go somewhere that would take her insurance. PFSH Past Medical History Bipolar Disorder: Yes Diminished Hearing: No Endocrine: No Kidney Stones: Yes ?: Not Past Surgical History Other Surgery: Yes (right hand surgery, right knee surgery ) Social History Alcohol Use: No Tobacco Use: No Substance Use: Yes (MARIJUANA DAILY) Allergies-Medications (Allergen,Severity, Reaction): Coded Allergies: acetaminophen (Unverified Allergy, Mild, itching , 02/08/17) oxycodone (Unverified Allergy, Mild, itching , 02/08/17) divalproex sodium (Verified Adverse Reaction, Severe, ANX, 02/08/17) PANIC ATTACKS haloperidol (Verified Adverse Reaction, Severe, Hallucinations, 02/08/17) PT SAID WHEN SHE HAS HALDOL SHE "HEARS VOICES AND WANTS TO KILL PEOPLE" risperidone (Verified Adverse Reaction, Severe, Hallucinations, 02/08/17) ziprasidone (Verified Adverse Reaction, Severe, PANIC ATTACKS, 02/08/17) Reported Meds & Prescriptions Reported Meds & Active Scripts Active Zyprexa (Olanzapine) 10 Mg Tab 10 Mg PO HS Review of Systems General / Constitutional: No: Fever Eyes: No: Visual changes HENT: No: Headaches Cardiovascular: No: Chest Pain or Discomfort Respiratory: No: Shortness of Breath Gastrointestinal: No: Abdominal Pain Genitourinary: No: Dysuria Musculoskeletal: No: Pain Skin: No Rash Neurologic: No: Weakness Psychiatric: No: Depression Endocrine: No: Polydipsia Hematologic/Lymphatic: No: Easy Bruising Physical Exam Narrative GENERAL: AAO x 3, no acute distress, Well-nourished, well-developed patient. SKIN: Warm and dry. No visible rashes or bruising. HEAD: Normocephalic and atraumatic. EYES: No scleral icterus. No injection or drainage. EOM intact, PERRLA ENT: No nasal drainage noted. Mucous membranes pink. Airway patent. NECK: Supple, trachea midline. No JVD. CARDIOVASCULAR: Regular rate and rhythm without murmurs, gallops, or rubs. RESPIRATORY: Breath sounds equal bilaterally. No accessory muscle use. No rhonchi or rales. GASTROINTESTINAL: visual inspection normal EXTREMITIES: No cyanosis or edema. BACK: No obvious deformity. No CVA tenderness. NEURO: CN II-12 intact, emergency medicine nurse practitioner strength normal b/l, UE and LE 5/5, no focal deficits PSYCH: AAO x 3, normal affect. Data Data Last Documented VS Vital Signs Date Time Temp Pulse Resp B/P (MAP) Pulse Ox O2 Delivery O2 Flow Rate FiO2 02/08/17 14:04 98.2 101 20 143/84 (103) 98 MDM Medical Decision Making Medical Screen Exam Complete: Yes Emergency Medical Condition: No Medical Record Reviewed: Yes Differential Diagnosis medical clearance, medication refills Narrative Course A medical screening exam was performed: At the time of evaluation the presenting medical condition was determined not to be of an emergent nature. The patient was given the option of receiving additional care, but declined. Patient was given options for additional community resources from which to obtain care. The Patient Has Been advised to seek medical attention for their presenting complaint. The patient has been advised to return to the ER at any time if an emergent condition develops.\\ Patient given resources for additional care in the community. Diagnosis Primary Impression: Encounter for medical screening examination Condition: Stable Joanna Garvin Feb 08, 2017 16:09
== END 2017-02-08 16:43 | disposition left against medical advice (07) ==
LOC: NEPD 14:01
DX: F31.9 Bipolar disorder, unspecified (principal)
CPT/HCPCS: 99281